=== PATIENT | female | born 1955 | race Caucasian/White ===

== ENCOUNTER 2016-11-08 09:17 | Day surgery (SDC) | payer OTHER ==
[2016-11-05 16:16] VITALS: BMI 27.4
[~2016-11-08] VITALS: Ht 167.6 cm; Wt 76.9 kg
[2016-11-08] VITALS (10 sets, daily range): BP systolic 112–141; BP diastolic 61–88; PULSE 58–95; RESP 14–23; Ht 167.6 cm; Wt 76.9 kg
[~2016-11-08 09:17] MED LIST: CEFAZOLIN 2 GM/50 ML (PMX) 50 ML IVPB SCH
[2016-11-08] MEDS ORDERED: BUPIVACAINE 0.5% (SDV) 30 ML INJ ONE (10:44)
[2016-11-08] MEDS ORDERED: LIDOCAINE 2% (MDV) 20 ML INJ ONE (10:44)
[2016-11-08] MEDS ORDERED: POLYMYXIN/BACITRACIN 1L IRRIG ONE (10:47)
[2016-11-08] MEDS ORDERED: BUPIVACAINE 0.5% (SDV) 30 ML INJ INJ ONE (11:15)
[2016-11-08] MEDS ORDERED: FENTAnyl 50 MCG/ML VIAL ONE (11:21)
[2016-11-08] MEDS ORDERED: MIDAZOLAM 1 MG/ML 2 ML INJ ONE (11:22)
[2016-11-08] MEDS ORDERED: ONDANSETRON 4 MG INJ ONE (11:59)
[2016-11-08] MEDS ORDERED: PROPOFOL 20 ML ONE (11:59)
[2016-11-08] MEDS ORDERED: LIDOCAINE 2% (SDV) 5 ML INJ ONE (11:59)
[2016-11-08] MEDS ORDERED: MEPERIDINE 25 MG INJ IV PRN (12:00)
[2016-11-08] MEDS ORDERED: HYDROmorphONE (0.2 MG/ML) 10ML SYG IV PRN ×2 (12:00)
[2016-11-08] MEDS ORDERED: ONDANSETRON 4 MG INJ IV PRN (12:00)
[2016-11-08] MEDS ORDERED: DIPHENHYDRAMINE 50 MG INJ IV PRN (12:00)
[2016-11-08] MEDS ORDERED: FENTAnyl 50 MCG/ML VIAL IV PRN (12:00)
[2016-11-08] MEDS ORDERED: CEFAZOLIN 1 GM INJ ONE (12:02)
--- NOTE | 2016-11-08 12:06 | HPN ---
Date/Time of Note Date/Time of Note DATE: 11/08/16 TIME: 12:06 Interval H&P Admission Note Pt. seen H&P reviewed: No system changes RUTHIE SIMMONS DPM Nov 08, 2016 12:06
[2016-11-08] MEDS ORDERED: HYDROCODONE/APAP (10/325) TAB PO PRN (12:30)
== END 2016-11-08 15:37 | disposition home or self-care (01) ==
LOC: SDS 09:17
PROVIDERS: ATTEND Podiatrist Foot & Ankle Surgery
DX: G57.61 Lesion of plantar nerve, right lower limb (principal)
CPT/HCPCS: 28080; 88304; J0690; J2250; J2405; J3010; Z7512; Z7610

== ENCOUNTER 2018-09-09 07:00 | Inpatient (IN) | END 2018-09-12 15:43 | disposition home health service (06) | DRG 470 ==